=== PATIENT | male | born 1995 | race Caucasian/White ===

== ENCOUNTER 2018-05-17 20:52 | Emergency (ER) | payer OTHER ==
--- NOTE | 2018-05-17 21:34 | ED Physician Chart ---
ED Chief Complaint/HPI - Patient Information Date Seen:: 05/17/18 Time Seen:: 21:29 Chief Complaint:: rt shoulder possible dislocation History of Present Illness:: 23 yr old male playing basketball who fell today while playing with possible dislocation Allergies:: Allergies Allergy/AdvReac Type Severity Reaction Status Date / Time No Known Allergies Allergy Verified 05/17/18 21:03 Vitals:: Vital Signs - 8 hr 05/17/18 21:03 Temp 99.0 F HR 89 RR 18 BP 117/66 O2 Sat % 99 ED Review of Systems - Review of Systems General/Constitutional: No fever Skin: No skin lesions Head: No headache Eyes: No loss of vision ENT: No earache Neck: No neck pain Cardio Vascular: No chest pain Pulmonary: No SOB GI: No vomiting G/U: No dysuria Musculoskeletal: Bone or joint pain, No bone or joint pain Psychiatric: No prior psych history Hematopoietic: No bruising Allergic/Immuno: No urticaria (rt shoulder pain and deformity) ED Past Medical History - Past Medical History Past Medical History: No significant medical hx ED Physical Exam - Physical Examination General/Constitutional: Well-developed, well-nourished Eyes: Lids, conjuctiva normal Skin: Nl inspection ENMT: External ears, nose nl Neck: Nontender Respiratory: Nl effort/Exclusion Cardio Vascular: RRR, No murmur, gallop, rubs Neuro/Psych: Alert/oriented (rt shoulder joint deformity) ED Labs/Radiology/EKG Results - Lab Results Results: rt shoulder deformity ED Assessment - Assessment General Assessment: rt shoulder deformity possible dislocation ED Septic Shock - . Is Septic Shock (SBP<90, OR Lactate>4 mmol\L) present?: No - <6hrs of presentation: Vital Signs: Vital Signs - 8 hr 05/17/18 21:03 Temp 99.0 F HR 89 RR 18 BP 117/66 O2 Sat % 99 ED Reassessment (Disposition) - Aftercare/Follow up Instructions Aftercare/Follow-Up Instructions:: Counseled pt regarding lab results/diagnosis & need follow up - Patient Disposition Discharge/Transfer:: Home Condition at Disposition:: Stable
[2018-05-17] MEDS ORDERED: Morphine Sulfate 4 mg/mL 1mL Syr IV STA (21:37)
[2018-05-17] MEDS ORDERED: Midazolam 1mg/ml 2 ml vial IV STA (21:38)
[2018-05-17] MEDS ORDERED: Morphine Sulfate 2 mg/mL 1mL Syr ONE (21:41)
[2018-05-17] MEDS ORDERED: Midazolam 1mg/ml 2 ml vial IV ONE (21:45)
--- NOTE | 2018-05-18 08:50 | Diagnostic Imaging Report ---
Right shoulder (4 views) HISTORY: Pain Normal bone density. No fractures. No dislocation. Slight elevation in the "Y view" of the distal clavicle. A degree of acromioclavicular separation cannot be excluded. Findings may be related to projection. IMPRESSION: 1. Questionable changes that may reflect a degree of acromioclavicular separation. Clinical correlation is needed. Changes may be related to projection. 2. No fractures or dislocations.
== END 2018-05-17 23:05 | disposition home or self-care (01) ==
LOC: ER 20:52
DX: S43.101A Unspecified dislocation of right acromioclavicular joint, initial encounter (principal); W18.30XA Fall on same level, unspecified, initial encounter; Y93.67 Activity, basketball; Y92.310 Basketball court as the place of occurrence of the external cause; Y99.8 Other external cause status
CPT/HCPCS: 99284; 96374; 73030; J2270; J2250; Z7502